=== PATIENT | male | born 1985 | race Two or more races ===

== ENCOUNTER 2024-10-04 22:49 | Emergency (ER) | payer OTHER, MEDICAID ==
[~2024-10-04] VITALS: Ht 157.5 cm; Wt 70.3 kg
[2024-10-04 23:54] VITALS: BP 128/88; PULSE 87; RESP 16; TEMP 98.4; O2SAT 98
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
== END 2024-10-05 00:02 | disposition home or self-care (01) ==
LOC: ER 22:49
DX: S40.022A Contusion of left upper arm, initial encounter (principal); V89.2XXA Person injured in unspecified motor-vehicle accident, traffic, initial encounter; Y93.89 Activity, other specified; Y92.410 Unspecified street and highway as the place of occurrence of the external cause; Y99.8 Other external cause status